=== PATIENT | male | born 1970 | race Caucasian/White ===

== ENCOUNTER 2017-03-28 08:22 | Inpatient (IN) | payer MEDICARE, OTHER ==
[2017-03-22 14:57] LABS: ANION GAP 3 mmol/L (8-16); CALCIUM, TOTAL 9.2 mg/dL (8.8-10.5); CARBON DIOXIDE 32 mmol/L (22-29); CHLORIDE 104 mmol/L (98-107); GLOMERULAR FILTR. RATE CALC > 60 mL/min (>60); POTASSIUM 4.7 mmol/L (3.5-5.1); SODIUM SERUM 139 mmol/L (136-145); UREA NITROGEN, BLOOD 9 mg/dL (7-18)
[2017-03-22 15:03] LABS: ALANINE AMINOTRANSFERASE 22 U/L (12-78); ALBUMIN 3.7 g/dL (3.4-5.0); ASPARTATE AMINOTRANSFERASE 16 U/L (15-37); BILIRUBIN,TOTAL 0.5 mg/dL (0.1-1.0); TOTAL PROTEIN, SERUM 7.3 g/dL (6.4-8.2)
[2017-03-22 15:06] LABS: BASOPHILS % (AUTO) 0.3 % (0.0-2.0); EOSINOPHILS % (AUTO) 3.9 % (1.0-6.0); HEMATOCRIT 40.1 % (41-53); HEMOGLOBIN 13.6 g/dL (13.5-17.5); LYMPHOCYTES % (AUTO) 18.8 % (22.0-44.0); MEAN CORPUSCULAR HEMOGLOBIN 30.1 pg (26.0-34.0); MEAN CORPUSCULAR VOLUME 88 fL (80-100); MONOCYTES # (AUTO) 0.7 K/uL (0.1-1.0); MONOCYTES % (AUTO) 6.1 % (2.0-9.0); NEUTROPHILS # (AUTO) 7.6 K/uL (1.8-7.7); NEUTROPHILS % (AUTO) 70.9 % (40.0-70.0); PLATELET COUNT (AUTO) 251 K/uL (150-450); RED BLOOD CELL COUNT(AUTO) 4.53 MIL/uL (4.50-5.90); RED CELL DISTRIBUTION WIDTH 13.5 % (11.5-14.5); WHITE BLOOD COUNT (AUTO) 10.7 K/uL (4.5-11.0)
[2017-03-22 15:24] LABS: PROTHROMBIN TIME 10.8 SEC (9.4-11.6)
[~2017-03-28] VITALS: Ht 190.5 cm; Wt 105.9 kg
[~2017-03-28 08:22] MED LIST: AMPH30TA3 PO; CLINDAMYCIN 600 MG/D5% WATER 50 ML IV ONE; CeFAZolin 2 GM/DEXTROSE 50 ML IV ONE; DIAZ10 PO; MORP30PC9 PO; OXYC10 PO; RINGERS SOLUTION,LACTATED 1,000 ML IV ONE
[2017-03-28] MEDS ORDERED: RINGERS SOLUTION,LACTATED 1,000 ML IV ONE (08:23)
[2017-03-28] MEDS ORDERED: PROPOFOL 1000 MG/ISO-OSM 100 ML IV ONE (09:26)
[2017-03-28] MEDS ORDERED: ACETAMINOPHEN 1000 MG/ISO-OSM 100 ML IV ONE (09:27)
[2017-03-28] MEDS ORDERED: BUPIVACAINE HCL/PF 0.5% 30 ML VIAL ONE (09:30)
[2017-03-28] MEDS ORDERED: BUPIVACAINE LIPOSOME/PF 1.3%-13.3MG/ML SUSPENSION 20 ML VIAL INJ ONE (09:30)
[2017-03-28] MEDS ORDERED: BACITRACIN 28.4 GM OINTMENT TP PRN (11:00)
[2017-03-28] MEDS ORDERED: OXYC30TA2 PO (11:15)
[2017-03-28] MEDS ORDERED: MORP30TA71 PO (11:15)
[2017-03-28] MEDS ORDERED: MEPERIDINE-PF 25 MG/ML SYRINGE IVP PRN (11:45)
[2017-03-28] MEDS ORDERED: ONDANSETRON HCL 4 MG/2 ML VIAL IVP PRN (11:45)
[2017-03-28] MEDS ORDERED: OxyCODONE HCL/ACETAMINOPHEN 10-325 MG TABLET PO PRN (11:45)
[2017-03-28] MEDS ORDERED: HYDROmorphone 2 MG/ML SYRINGE IVP PRN ×2 (11:45→15:30)
[2017-03-28] MEDS ORDERED: PROPOFOL 1% 20 ML VIAL IVP ONE (12:00)
[2017-03-28] MEDS ORDERED: GLYCOPYRROLATE 0.2 MG/ML VIAL IM ONE (12:00)
[2017-03-28] MEDS ORDERED: DEXAMETHASONE SOD PHOS 4 MG/ML VIAL IVP ONE (12:00)
[2017-03-28] MEDS ORDERED: MIDAZOLAM HCL 2 MG/2 ML VIAL IVP ONE (12:00)
[2017-03-28] MEDS ORDERED: LIDOCAINE HCL/PF 2% 5 ML VIAL INJ ONE (12:00)
[2017-03-28] MEDS ORDERED: KETAMINE HCL 50 MG/ML 10 ML VIAL IVP ONE (12:00)
[2017-03-28] MEDS ORDERED: FentaNYL CITRATE-PF 250 MCG/5 ML VIAL IVP ONE (12:00)
[2017-03-28] MEDS ORDERED: ONDANSETRON HCL 4 MG/2 ML VIAL IVP ONE (12:00)
[2017-03-28] MEDS ORDERED: NEOSTIGMINE METHYLSULFATE 1 MG/ML 10 ML VIAL IVP ONE (12:00)
[2017-03-28] MEDS ORDERED: ROCURONIUM BROMIDE 10 MG/ML 5 ML VIAL ONE (12:01)
[2017-03-28] MEDS ORDERED: FentaNYL CITRATE-PF 100 MCG/2 ML VIAL ONE ×2 (13:08→13:22)
[2017-03-28] MEDS: FentaNYL CITRATE-PF 100 MCG/2 ML VIAL IVP PRN ×4 (13:10→13:33)
[2017-03-28] MEDS ORDERED: HYDROmorphone 2 MG/ML SYRINGE ONE (13:13)
[2017-03-28] MEDS: HYDROmorphone 2 MG/ML SYRINGE IVP PRN ×3 (13:16→14:25)
[2017-03-28 14:10] VITALS: BP 122/85
[2017-03-28 14:15] VITALS: BP 122/85
[2017-03-28] MEDS ORDERED: BISACODYL 5 MG EC TABLET PO PRN (15:30)
[2017-03-28] MEDS ORDERED: DEXTROSE 5%-0.45% SODIUM CHL 1,000 ML IV PRN ×2 (15:30→18:37)
[2017-03-28] MEDS ORDERED: PROMETHAZINE HCL 25 MG/ML VIAL IM PRN (15:30)
[2017-03-28] MEDS: CYCLOBENZAPRINE HCL 10 MG TABLET PO SCH ×2 (16:36→21:32)
[2017-03-28] MEDS: ACETAMINOPHEN 1000 MG/ISO-OSM 100 ML IV SCH ×2 (16:53→21:32)
[2017-03-28 16:57] VITALS: BP 117/70
[2017-03-28] MEDS ORDERED: HYDROmorphone HCL 50 MG/NS/PF 100 ML IV PRN ×2 (18:37)
[2017-03-28] MEDS ORDERED: NALOXONE HCL 0.4 MG/ML VIAL IVP PRN (18:45)
[2017-03-28] MEDS: CLINDAMYCIN 600 MG/D5% WATER 50 ML IV SCH (19:25)
[2017-03-28 19:36] VITALS: BP 117/81
[2017-03-28] MEDS ORDERED: OXYGEN THERAPY IH SCH (20:00)
[2017-03-28] MEDS ORDERED: CYCLOBENZAPRINE HCL 10 MG TABLET PO SCH (21:00)
[2017-03-28] MEDS ORDERED: CELECOXIB 200 MG CAPSULE PO SCH (21:00)
[2017-03-28 22:31] VITALS: BP 107/67
[2017-03-29 03:27] VITALS: BP 112/63
[2017-03-29] MEDS: CLINDAMYCIN 600 MG/D5% WATER 50 ML IV SCH (04:11)
[2017-03-29] MEDS: ACETAMINOPHEN 1000 MG/ISO-OSM 100 ML IV SCH ×2 (04:52→10:00)
[2017-03-29 06:23] LABS: ANION GAP 3 mmol/L (8-16); CALCIUM, TOTAL 8.6 mg/dL (8.8-10.5); CARBON DIOXIDE 32 mmol/L (22-29); CHLORIDE 105 mmol/L (98-107); GLOMERULAR FILTR. RATE CALC > 60 mL/min (>60); POTASSIUM 4.3 mmol/L (3.5-5.1); SODIUM SERUM 140 mmol/L (136-145); UREA NITROGEN, BLOOD 11 mg/dL (7-18)
[2017-03-29 06:55] LABS: BASOPHILS % (AUTO) 0.5 % (0.0-2.0); EOSINOPHILS % (AUTO) 0 % (1.0-6.0); HEMOGLOBIN 14.7 g/dL (13.5-17.5); LYMPHOCYTES # (AUTO) 1.4 K/uL (1.0-4.8); LYMPHOCYTES % (AUTO) 21.6 % (22.0-44.0); MEAN CORPUSCULAR HEMOGLOBIN 31.5 pg (26.0-34.0); MEAN CORPUSCULAR HGB CONC 34.1 G/dL (31.0-37.0); MEAN CORPUSCULAR VOLUME 92 fL (80-100); MONOCYTES # (AUTO) 0.6 K/uL (0.1-1.0); MONOCYTES % (AUTO) 8.5 % (2.0-9.0); NEUTROPHILS # (AUTO) 4.5 K/uL (1.8-7.7); NEUTROPHILS % (AUTO) 69.4 % (40.0-70.0); PLATELET COUNT (AUTO) 326 K/uL (150-450); RED BLOOD CELL COUNT(AUTO) 4.66 MIL/uL (4.50-5.90); RED CELL DISTRIBUTION WIDTH 13.6 % (11.5-14.5); WHITE BLOOD COUNT (AUTO) 6.5 K/uL (4.5-11.0)
[2017-03-29 07:36] VITALS: BP 105/67
[2017-03-29] MEDS: CYCLOBENZAPRINE HCL 10 MG TABLET PO SCH ×3 (08:11→20:28)
[2017-03-29 11:45] VITALS: BP 118/65
[2017-03-29 15:48] VITALS: BP 146/71
[2017-03-29 21:35] VITALS: BP 110/58
[2017-03-29 23:57] VITALS: BP 125/65
[2017-03-30 04:09] VITALS: BP 129/66
[2017-03-30 07:53] VITALS: BP 133/70
[2017-03-30] MEDS: CYCLOBENZAPRINE HCL 10 MG TABLET PO SCH (09:12)
[2017-03-30 11:24] VITALS: BP 126/65
== END 2017-03-30 12:30 | disposition home or self-care (01) | DRG 460 ==
LOC: 4E 08:22
PROVIDERS: ADMIT Orthopaedic Surgery Orthopaedic Surgery of the Spine; ATTEND Orthopaedic Surgery Orthopaedic Surgery of the Spine
PROC: 0SG30A0 Fusion of Lumbosacral Joint with Interbody Fusion Device, Anterior Approach, Anterior Column, Open Approach (ICD-10-PCS; 2017-03-28)
PROC: 0SG00A0 Fusion of Lumbar Vertebral Joint with Interbody Fusion Device, Anterior Approach, Anterior Column, Open Approach (ICD-10-PCS; principal; 2017-03-28 10:00)
DX: M51.37 Other intervertebral disc degeneration, lumbosacral region (principal); Z88.0 Allergy status to penicillin; M51.36 Other intervertebral disc degeneration, lumbar region
CPT/HCPCS: 87081; 94761; 97116; 97162; 97165; 97530; 97535; C1713; C9290; G0238; J0131; J1100; J1170; J2250; J2405; J2550; J2704; J3010; J3490; J7120